=== PATIENT | male | born 1985 | race Caucasian/White ===

== ENCOUNTER 2019-11-14 08:27 | Day surgery (SDC) | payer OTHER ==
--- NOTE | 2019-11-14 08:01 | HP ---
DATE OF SURGERY: 11/14/2019 HISTORY OF PRESENT ILLNESS: The patient is a 34 year-old had flu-like symptoms coughing bad, had right inguinal bulge, increased ache. He has prior history of appendectomy in the past. No prior inguinal surgery. On exam he seemed to have more of an inguinal-type hernia rather than a femoral hernia. Either way I felt he would benefit from repair. Discussed options laparoscopic versus robotic. He prefers to proceed with laparoscopic. PAST MEDICAL HISTORY: Asthma. PAST SURGICAL HISTORY: Appendectomy. Lithotripsy for kidney stone. MEDICATIONS: None. ALLERGIES: NKDA. FAMILY HISTORY: Diabetes. SOCIAL HISTORY: No alcohol abuse. REVIEW OF SYSTEMS: Fourteen systems reviewed. No chest pain or palpitations other systems negative or noncontributory as above and per preadmission questionnaire. PHYSICAL EXAMINATION: GENERAL: No acute distress. HEENT: Sclerae nonicteric. NECK: No JVD. CHEST: Equal excursion, nonlabored breathing. CVS: Regular rate and rhythm. ABDOMEN: Soft. Right inguinal hernia, question of incarcerated inguinal hernia less likely femoral component possible differential. EXTREMITIES: No edema. NEURO: Alert, oriented, moving extremities symmetrically. No gross motor deficits noted. PSYCH: Appropriate mood and affect. IMPRESSION: Question of incarcerated right inguinal hernia less likely possible femoral component. I feel the patient will benefit from repair. Proceed with laparoscopic repair right inguinal hernia with mesh, possible open. Risks and benefits explained in detail to the patient but not limited to bleeding or infection, risk of trocar injury or hernia, risk of bowel, bladder, blood vessel injury, risk of bladder, ureter or vascular issues or injury, risk of vas or gonadal vessel issues or injury, risk of hernia recurrence, risk of mesh infection possibly requiring removal, risk of adhesion, risk of scar formation or obstruction, overall risk of recurrence, general risk of aches, pains, burning, numbness lower abdomen, groin, thigh or scrotal area, risk of sensory or motor nerve irritation, scar formation or injury, possible chronic aches and pains up to 10 to 12%, possibly interfering with sexual function from standpoint. He understands all of the above but not limited to as well as ache or twinge down the road. He understands all of the above as well as possible need to convert to an open procedure. He understands the risks. Small risk of urinary retention or bladder irritation possibly requiring temporary catheter, rare risk of requiring removal of mesh. General risk of anesthesia, deep venous thrombosis, pulmonary embolism, pneumonia but not limited to. He understands all of the above and will proceed with laparoscopic repair incarcerated right inguinal hernia with mesh as an outpatient.
[~2019-11-14 08:27] MED LIST: CEFAZOLIN 2 GM-D5W BAG** 2 GM/50 ML ML IV ONE; Lactated Ringers 1,000 ML IV ONE; Lactated Ringers 1,000 ML IV SCH; Sensorcaine 0.25% 10 ML ONE
[2019-11-14] MEDS ORDERED: DIPRIVAN 200 MG/20 ML IV ONE (09:53)
[2019-11-14] MEDS ORDERED: SUBLIMAZE 100 MCG/2 ML ONE ×2 (09:53→12:04)
[2019-11-14] MEDS ORDERED: Zemuron 100 MG/10 ML ONE ×3 (09:53→11:11)
[2019-11-14] MEDS ORDERED: Quelicin Fliptop 200 MG/10 ML ONE (09:53)
[2019-11-14] MEDS ORDERED: BRIDION 200MG/2ML IV ONE (10:06)
[2019-11-14] MEDS ORDERED: Zofran 4 MG/2 ML VIAL ONE (10:06)
[2019-11-14] MEDS ORDERED: Naropin 0.5% 30 ML VIAL ONE (10:06)
[2019-11-14] MEDS ORDERED: Decadron 4 MG INJ ONE (10:06)
[2019-11-14] MEDS ORDERED: TORAdol 30 mg Injection ONE (10:06)
[2019-11-14] MEDS ORDERED: DILAUDID 2 MG INJECTION ONE ×2 (11:30→12:04)
[2019-11-14] MEDS ORDERED: BENADRYL 50 MG/ML ONE (12:25)
[2019-11-14] MEDS ORDERED: Lactated Ringers 1,000 ML IV ONE (12:34)
[2019-11-14 13:25] VITALS: O2SAT 98
--- NOTE | 2019-11-14 13:41 | OP ---
SURGERY DATE/TIME: 11/14/2019 0958 PREOPERATIVE DIAGNOSIS: Increasing symptomatic incarcerated right inguinal hernia. POSTOPERATIVE DIAGNOSIS: Increasing symptomatic incarcerated right inguinal hernia. PROCEDURE: Laparoscopic repair of incarcerated right inguinal hernia with mesh. SURGEON: Dr. El Wharton. ANESTHESIA: General. ESTIMATED BLOOD LOSS: Minimal. INDICATIONS: As noted above. Risks and benefits explained in detail and not limited to and consent obtained. DESCRIPTION OF PROCEDURE AND FINDINGS: The patient is taken to the operating room. General anesthesia induced. Abdomen prepped and draped in usual sterile fashion. After official time out and no disagreement with planned procedure, a transverse incision made supraumbilical area. The site had been marked and confirmed with the patient in the preoperative holding area. After prepping and draping in usual sterile fashion, a transverse incision made supraumbilical area. Fascia grasped pulled upwards. Veress needle inserted and tested with saline. Pneumoperitoneum accomplished insufflating opening pressure 0-15. A 5 mm bladeless port and camera inserted without difficulty followed by right mid-abdomen and left mid-abdomen 5 mm port under direct vision with the camera. The patient had several omental adhesions from his previous appendectomy procedure. These were slowly and carefully taken down with sharp dissection with laparoscopic peyman sealing a little bit of oozing omentum with the LigaSure device as necessary. There was a portion of the colon stuck up there. It appeared to just have adhesions through. It did not appear to have any issues with lysis of adhesions. This was re-inspected at the very end of the case and appeared to be stable. There did not appear to be any issue of any bowel injury secondary to lysis of adhesions. The patient had incarcerated omentum stuck up in his right inguinal hernia. The left side did not appear to have any significant hernia currently laparoscopically. At this point the preperitoneal space was entered sharply with laparoscopic peyman. There was some scar tissue whether he had some sort of port from prior appendectomy this was densely adhesed here but the peritoneum was finally able to be freed. Dissection carried down to the moderately large indirect hernia sac. It took some time but slowly carefully freed leaving the fibrofatty tissue and cord structures off laterally. Again, this took some time to dissect this free but slowly and carefully accomplished in a blunt manner using LigaSure to seal oozing adhesion well away from the cord structures over the lateral nerves. Dissection then carried medially in the retrorectal space down to the pubis into the Case's ligament. The hernia sac and peritoneum carefully mobilized up off the core structures and iliac vessels. Again leaving the fibrofatty and neurovascular bundles out laterally. This large hernia sac had been reduced. Perineum was nice and lax. No evidence of any tension to create issues with recurrence. A tape measure was used. It was felt most appropriate was a large right 3D Max. A suture is placed at the crease to go over the iliac vessels. Good hemostasis noted. Good space had been created. At this point the mesh is carefully rolled, inserted, carefully positioned to overlap the direct femoral and indirect spaces. A couple of tacks placed on Case's ligament and pubis area. Given the size of this direct hernia component one tack was placed to reduce pressure down to 8 or 10. One tack was placed superior-lateral to avoid migration mesh staying superior to keep the mesh from folding or falling down in the large indirect space. One extra one in order to keep the mesh nice and flat more medially on the rectus area was accomplished. At this point it appeared to be covering the direct femoral and indirect spaces. It had excellent mobilization of peritoneum well cephalad to the mesh area to decrease the risk of it working its way behind the mesh. At this point the large hernia sac was carefully pulled upwards and packed with peritoneum cephalad to insure coverage of the mesh. At this point good hemostasis is noted. Again, the bowel where lysis of adhesion had been accomplished was inspected. No evidence of any issues secondary to lysis of adhesions on the bowel itself and appeared to be intact. There was no evidence of any enterotomy issues at this point. #1 Vicryl was used to close the 10/12 port site where the mesh had been placed through the mid abdomen under direct vision of the camera. At this point insuring that grasper holding lateral aspect of the mesh flat to avoid any buckling. Pneumoperitoneum decompressed as did overlap the peritoneum over the dissection. Again, the hernia sac had been tacked superiorly to avoid it working its way underneath. Pneumoperitoneum decompressed. Again the 10/12 port closed with #1 Vicryl. Wound irrigated out. Skin incision closed with 4-0 Vicryl, Steri-Strips and sterile dressing applied. 0.25% Marcaine local injected along the skin incision back towards the origin of inguinal nerve back towards the anterior iliac spine. The right inguinal pressure dressing was placed to reduce the risk of seroma formation given the moderately large hernia. Given this had been incarcerated hernia, the omentum had finally been able to be reduced from the incarcerated hernia repair and repaired as safely as carefully as possible laparoscopically. There were immediate complications. There was no family available to discuss the findings with out in the waiting area.
[2019-11-14 14:02] VITALS: BP 126/84; PULSE 92
[2019-11-14 15:36] LABS: Appearance CLEAR (CLEAR); Bilirubin NEGATIVE (NEGATIVE); Blood NEGATIVE Ery/ul (0-5); Glucose NEGATIVE (NEGATIVE); Ketones NEGATIVE (NEGATIVE); Leukocyte Esterase NEGATIVE (NEGATIVE); Mucus SLIGHT /HPF (NEGATIVE); Nitrite NEGATIVE (NEGATIVE); Protein,Urine Dip NEGATIVE (Negative); Specific Gravity 1.018 (1.005-1.025); Urobilinogen NEGATIVE mg/dL (0-1)
== END 2019-11-14 13:45 | disposition home or self-care (01) ==
LOC: SDC 08:27
PROVIDERS: ATTEND Surgery
DX: K40.30 Unilateral inguinal hernia, with obstruction, without gangrene, not specified as recurrent (principal)
CPT/HCPCS: 64486; 76937; 81001; 87086; J0330; J0690; J1100; J1170; J1200; J1885; J2405; J2704; J2795; J3010

== ENCOUNTER 2019-11-20 10:56 | Emergency (ER) | payer OTHER ==
[2019-11-20 11:52] LABS: Hematocrit 48.4 % (42-50); Hemoglobin 16.6 gm/dl (12.5-18.0); Mean Corpuscular Hemoglobin 28.5 pg (26-32); Mean Corpuscular Hgb Concent. 34.3 g/dl (32-36); Mean Platelet Volume 9.8 fl (7.5-11.0); Platelet Count 211 K/mm3 (150-450); Red Blood Count 5.83 M/mm3 (4.1-5.6); Red Cell Distribution Width 13.5 % (11.5-14.0); White Blood Count 13.9 K/mm3 (4.0-10.5)
[2019-11-20 12:00] LABS: Appearance SLIGHTLY CLOUDY (CLEAR); Bilirubin NEGATIVE (NEGATIVE); Blood NEGATIVE Ery/ul (0-5); Glucose NEGATIVE (NEGATIVE); Ketones NEGATIVE (NEGATIVE); Leukocyte Esterase NEGATIVE (NEGATIVE); Mucus SLIGHT /HPF (NEGATIVE); Nitrite NEGATIVE (NEGATIVE); Protein,Urine Dip NEGATIVE (Negative); RBC 0-2 /HPF (0-2); Specific Gravity 1.027 (1.005-1.025); Urobilinogen NEGATIVE mg/dL (0-1); WBC 0-2 /HPF (0-5)
[2019-11-20 12:02] LABS: ALBUMIN 4.2 g/dL (3.5-5.0); ALKALINE PHOSPHATASE 56 U/L (38-126); AMYLASE 54 U/L (30-110); ANION GAP 11.3 MEQ/L (5-15); BLOOD UREA NITROGEN 22 mg/dL (9-20); CHLORIDE 100 mmol/L (98-107); Calcium 9.3 mg/dL (8.4-10.2); Carbon Dioxide 32 mmol/L (22-30); Creatinine 1 0.85 mg/dL (0.66-1.25); Glucose 115 mg/dL (74-106); LIPASE 27 U/L (23-300); Potassium 4.9 mmol/L (3.5-5.1); SGOT/AST 25 U/L (17-59); SGPT/ALT 30 U/L (0-50); SODIUM 138 mmol/L (137-145); Total Protein 7.4 g/dL (6.3-8.2)
[2019-11-20] MEDS ORDERED: CLINDAMYCIN-D5W 900 MG/50 ML*** 900 MG/50 ML BAG IV STA (12:17)
[2019-11-20] MEDS ORDERED: SUBLIMAZE 100 MCG/2 ML IV ONE (12:18)
[2019-11-20] MEDS ORDERED: Zofran 4 MG/2 ML VIAL IV ONE (12:18)
--- NOTE | 2019-11-20 12:20 | ERPHSYRPT ---
- History of Present Illness Time Seen by Provider: 11/20/19 11:07 Source: patient Exam Limitations: no limitations Patient Subjective Stated Complaint: testicular pain Triage Nursing Assessment: pt to ED c/o R testicular pain onset 3 days ago after hernia surgery on Thursday. rates 8/10 pain that worsens with movement. noted swelling to R testicle. tender to palp. incision from surgery appears to be healing appropriately. no c/o pain with incision. states no urianry sx, no burning or hesitancy. pt has treated with abx and pain meds at home with relief. lung sounds clear and equal bilaterally, heart sounds clear, bowel sounsd active, A&Ox3. ambulatory with assistance of 1 d/t pain. Physician History: Six days ago pt had RLQ abdominal hernia surgery by dr kulkarni at [facility]. Pt states his right testicle became painful the same day after surgery and started swelling 3 days ago. Last BM was today & wnl. Pt denies fever, vomiting, chest pain, shortness of air. Allergies/Adverse Reactions: No Known Drug Allergies Allergy (Verified 11/20/19 11:15) Home Medications: Multivitamin [Multivitamins] 1 each PO DAILY 11/02/19 [History] Pseudoephedrine HCl [Sudafed] 30 mg PO DAILY PRN PRN 11/02/19 [History] Hx Tetanus, Diphtheria Vaccination/Date Given: Yes Hx Influenza Vaccination/Date Given: Yes Immunizations Up to Date: Yes Travel Risk - International Travel Have you traveled outside of the country in past 3 weeks: No Have you or anyone close to you been diagnosed with or: No Do your reside in a community with a known COVID-19 case?: Yes If Yes where:: [place] - Coronavirus Screening Has patient experienced Coronavirus symptoms: No - Past Medical History Pertinent Past Medical History: Yes Neurological History: No Pertinent History ENT History: No Pertinent History Cardiac History: No Pertinent History Respiratory History: Asthma Endocrine Medical History: No Pertinent History Musculoskeletal History: No Pertinent History GI Medical History: No Pertinent History History: Other Psycho-Social History: No Pertinent History Male Reproductive Disorders: No Pertinent History Other Medical History: kidney stones - Past Surgical History Past Surgical History: Yes Neuro Surgical History: No Pertinent History Cardiac: No Pertinent History Respiratory: No Pertinent History Gastrointestinal: Appendectomy Genitourinary: Other Musculoskeletal: No Pertinent History Male Surgical History: No Pertinent History Other Surgical History: lithotripsy, hernia mesh implant - Social History Smoking Status: Never smoker Exposure to second hand smoke: No Drug Use: none - Review of Systems Constitutional: No Fever Respiratory: No Dyspnea Cardiac: No Chest Pain Abdominal/Gastrointestinal: No Vomiting Genitourinary Symptoms: Testicle Pain (right), No Dysuria All Other Systems: Reviewed and Negative - Nursing Vital Signs Nursing Vital Signs: Initial Vital Signs Temperature 98.2 F 11/20/19 11:04 Pain Scale Pain Intensity 2 - Physical Exam General Appearance: alert Eye Exam: PERRL/EOMI Ears, Nose, Throat Exam: pharynx normal Neck Exam: normal inspection Respiratory Exam: lungs clear Cardiovascular Exam: normal heart sounds Gastrointestinal/Abdomen Exam: soft, normal bowel sounds, tenderness (mild RLQ abdominal tenderness; incisions healing well.) Male Genital Exam: testicular tenderness (R) (moderate right testicular tenderness, edema and scrotal ecchymosis.) Back Exam: normal inspection Extremity Exam: No pedal edema Neurologic Exam: alert, cooperative Skin Exam: ecchymosis (scrotum ) SpO2 Interpretation: normal SpO2: 95 O2 Delivery: Room Air - Course Nursing assessment & vital signs reviewed: Yes - CT Exams Abdomen/Pelvis CT Interpretation: Tele-radiologist Report (status post right inguinal hernia repair with a hematoma in the inguinal canal and thickening of the wall of the visualized scrotum with bilateral hydroceles not fully assessed. Nonobstructive renal calculi. fatty liver.) - Radiology Ultrasound Exam Scrotal Ultrasound: Other (tech report: epididymitis right testicle.) Ordered Tests: Active Orders 24 hr Category Date Time Status IV Insertion STAT Care 11/20/19 12:20 Active Isolation, Initiate & Maintain Q12H Care 11/20/19 11:14 Active ABDOMEN AND PELVIS W/0 CONTRAS [CT] Stat Exams 11/20/19 11:14 Taken TESTICLE [US] Routine Exams 11/20/19 12:52 Taken AMYLASE Stat Lab 11/20/19 11:45 Completed BLOOD CULTURE Stat Lab 11/20/19 13:00 Received CBC W DIFF Stat Lab 11/20/19 11:45 Completed CMP Stat Lab 11/20/19 11:45 Completed LIPASE Stat Lab 11/20/19 11:45 Completed Lactic Acid Stat Lab 11/20/19 12:16 Completed Manual Differential NC Stat Lab 11/20/19 11:45 Completed UA W/RFX UR CULTURE Stat Lab 11/20/19 11:39 Completed Medication Summary Generic Name Dose Route Start Last Admin Trade Name Tran PRN Reason Stop Dose Admin Sodium Chloride 1,000 mls @ 100 mls/hr 11/20/19 12:30 11/20/19 12:56 Sodium Chloride 0.9% 1000 Ml IV 12/20/19 12:29 100 mls/hr .Q10H LAURYN Administration Discontinued Medications Generic Name Dose Route Start Last Admin Trade Name Tran PRN Reason Stop Dose Admin Fentanyl Citrate 100 mcg 11/20/19 12:18 11/20/19 12:56 Sublimaze 100 Mcg/2 Ml IV 11/20/19 12:19 100 mcg STAT ONE Administration Fentanyl Citrate Confirm 11/20/19 12:51 Sublimaze 100 Mcg/2 Ml Administered 11/20/19 12:52 Dose 100 mcg .ROUTE .STK-MED ONE Clindamycin HCl/Dextrose 900 mg in 50 mls @ 100 mls/hr 11/20/19 12:17 12:56 Clindamycin-D5w 900 Mg/50 Ml IV 11/20/19 12:46 100 ml/hr STAT STA 100 mls/hr Administration Clindamycin HCl/Dextrose Confirm 11/20/19 12:51 Clindamycin-D5w 900 Mg/50 Ml Administered 11/20/19 12:52 Dose 900 mg in 50 mls @ ud IV .STK-MED ONE Ondansetron HCl 4 mg 11/20/19 12:18 11/20/19 12:56 Zofran 4 Mg/2 Ml Vial IV 11/20/19 12:19 4 mg STAT ONE Administration Ondansetron HCl Confirm 11/20/19 12:51 Zofran 4 Mg/2 Ml Vial Administered 11/20/19 12:52 Dose 4 mg .ROUTE .STK-MED ONE Lab/Rad Data: Laboratory Result Diagrams 11/20/19 11:45 11/20/19 11:45 Laboratory Results 11/20/19 11/20/19 11/20/19 Range/Units 12:16 11:45 11:45 WBC 13.9 H (4.0-10.5) K/mm3 RBC 5.83 H (4.1-5.6) M/mm3 Hgb 16.6 (12.5-18.0) gm/dl Hct 48.4 (42-50) % MCV 83.0 (78-100) fl MCH 28.5 (26-32) pg MCHC 34.3 (32-36) g/dl RDW 13.5 (11.5-14.0) % Plt Count 211 (150-450) K/mm3 MPV 9.8 (7.5-11.0) fl Sodium 138 (137-145) mmol/L Potassium 4.9 (3.5-5.1) mmol/L Chloride 100 (98-107) mmol/L Carbon Dioxide 32 H (22-30) mmol/L Anion Gap 11.3 (5-15) MEQ/L BUN 22 H (9-20) mg/dL Creatinine 0.85 (0.66-1.25) mg/dL Estimated GFR > 60.0 ML/MIN Glucose 115 H (74-106) mg/dL Lactic Acid 1.0 (0.4-2.0) Calcium 9.3 (8.4-10.2) mg/dL Total Bilirubin 0.90 (0.2-1.3) mg/dL AST 25 (17-59) U/L ALT 30 (0-50) U/L Alkaline Phosphatase 56 (38-126) U/L Serum Total Protein 7.4 (6.3-8.2) g/dL Albumin 4.2 (3.5-5.0) g/dL Amylase 54 (30-110) U/L Lipase 27 (23-300) U/L Urine Color (YELLOW) Urine Appearance (CLEAR) Urine pH (5-6) Ur Specific [place] (1.005-1.025) Urine Protein (Negative) Urine Ketones (NEGATIVE) Urine Blood (0-5) Yogi/ul Urine Nitrite (NEGATIVE) Urine Bilirubin (NEGATIVE) Urine Urobilinogen (0-1) mg/dL Ur Leukocyte Esterase (NEGATIVE) Urine WBC (Auto) (0-5) /HPF Urine RBC (Auto) (0-2) /HPF U Epithel Cells (Auto) (FEW) /HPF Urine Bacteria (Auto) (NEGATIVE) /HPF Unidentified Crystals (NEGATIVE) /HPF Urine Mucus (Auto) (NEGATIVE) /HPF Urine Culture Reflexed (NO) Urine Glucose (NEGATIVE) mg/dL 11/20/19 Range/Units 11:39 WBC (4.0-10.5) K/mm3 RBC (4.1-5.6) M/mm3 Hgb (12.5-18.0) gm/dl Hct (42-50) % MCV (78-100) fl MCH (26-32) pg MCHC (32-36) g/dl RDW (11.5-14.0) % Plt Count (150-450) K/mm3 MPV (7.5-11.0) fl Sodium (137-145) mmol/L Potassium (3.5-5.1) mmol/L Chloride (98-107) mmol/L Carbon Dioxide (22-30) mmol/L Anion Gap (5-15) MEQ/L BUN (9-20) mg/dL Creatinine (0.66-1.25) mg/dL Estimated GFR ML/MIN Glucose (74-106) mg/dL Lactic Acid (0.4-2.0) Calcium (8.4-10.2) mg/dL Total Bilirubin (0.2-1.3) mg/dL AST (17-59) U/L ALT (0-50) U/L Alkaline Phosphatase (38-126) U/L Serum Total Protein (6.3-8.2) g/dL Albumin (3.5-5.0) g/dL Amylase (30-110) U/L Lipase (23-300) U/L Urine Color YELLOW (YELLOW) Urine Appearance SLIGHTLY CLOUDY (CLEAR) Urine pH 6.0 (5-6) Ur Specific [place] 1.027 (1.005-1.025) Urine Protein NEGATIVE (Negative) Urine Ketones NEGATIVE (NEGATIVE) Urine Blood NEGATIVE (0-5) Yogi/ul Urine Nitrite NEGATIVE (NEGATIVE) Urine Bilirubin NEGATIVE (NEGATIVE) Urine Urobilinogen NEGATIVE (0-1) mg/dL Ur Leukocyte Esterase NEGATIVE (NEGATIVE) Urine WBC (Auto) 0-2 (0-5) /HPF Urine RBC (Auto) 0-2 (0-2) /HPF U Epithel Cells (Auto) NONE (FEW) /HPF Urine Bacteria (Auto) NONE (NEGATIVE) /HPF Unidentified Crystals 2-5 (NEGATIVE) /HPF Urine Mucus (Auto) SLIGHT (NEGATIVE) /HPF Urine Culture Reflexed NO (NO) Urine Glucose NEGATIVE (NEGATIVE) mg/dL - Progress Progress: unchanged Discussed with : Kye (spoke with dr kulkarni ~ [phone]: have pt call the office in the morning for an appointment.) Counseled pt/family regarding: lab results, rad results - Departure Departure Disposition: Home Clinical Impression: Epididymitis, right, S/P abd hernia repair day 6. Condition: Stable Critical Care Time: No Referrals: BRYANNA MOREL MD [Primary Care Provider] - Instructions: Epididymitis (DC) Additional Instructions: Call dr kulkarni's office tomorrow morning for an appointment. Prescriptions: Clindamycin HCl 300 mg PO Q6H #40 capsule
[2019-11-20] MEDS ORDERED: Sodium Chloride 0.9% 1000 ML 1,000 ML IV SCH (12:30)
[2019-11-20] MEDS ORDERED: CLINDAMYCIN-D5W 900 MG/50 ML*** 900 MG/50 ML BAG IV ONE (12:51)
[2019-11-20] MEDS ORDERED: Zofran 4 MG/2 ML VIAL ONE (12:51)
[2019-11-20] MEDS ORDERED: SUBLIMAZE 100 MCG/2 ML ONE (12:51)
[2019-11-20] MEDS ORDERED: Sodium Chloride 0.9% 1000 ML 1,000 ML ONE (12:51)
[2019-11-20 13:06] VITALS: PULSE 96
[2019-11-20 13:38] VITALS: BP 109/82; O2SAT 98
[2019-11-20 14:37] LABS: BAND 3 % (0.0-2.0); Eosinophil 2 % (0.00-3.0); Lymphocytes 20 % (24-44); Monocyte 8 % (0.0-12.0); Neutrophils 67 % (36.-66.); Total Cells Counted 100
[2019-11-20 14:38] LABS: Platelet Estimate NORMAL (NORMAL)
--- NOTE | 2019-11-20 20:31 | XRAY ---
Indication: Abdomen and right testicle pain. Status post right inguinal hernia repair one week. Multiple contiguous axial images obtained through the abdomen and pelvis without contrast as ordered. Comparison: CT renal stone study October 03, 2013. Lung bases demonstrates minimal bibasilar dependent atelectasis. No infiltrate or effusion. Heart is not enlarged. Stomach is distended with food/fluid. Noncontrasted stomach and bowel loops appear nonobstructed. Previous appendectomy. No free fluid/air. Stable nonobstructing calculi bilaterally. Again 21 cm fatty hepatomegaly and 13 cm splenomegaly. Right inguinal canal demonstrates new noncalcified heterogeneous density presumed related to recent surgery. Lack of contrast precludes further characterization. Remaining liver, gallbladder, pancreas, spleen, adrenal glands, kidneys, ureters bladder, and aorta appear unremarkable for noncontrast exam. Osseous structures intact. Impression: 1. New right inguinal canal heterogeneous density presumed related to recent surgery. 2. Again nonobstructing bilateral renal calculi, fatty hepatomegaly, and splenomegaly. 3. Remaining CT abdomen/pelvis without contrast exam is negative. Comment: Preliminary interpretation was made by [facility]. No critical discrepancy.
--- NOTE | 2019-11-20 20:38 | XRAY ---
Indication: Right pain and swelling. Status post right inguinal hernia repair one week. 2-dimensional testicular sonogram performed. Comparison: None Both testicles are homogeneous in echogenicity with normal color perfusion. Right testicle measures 4.9 x 2.7 x 3.4 cm and the left measures 4.2 x 2.5 x 3.4 cm. Prominent right epididymis measuring 7 x 9 x 21 mm with hyperemic color flow favoring epididymitis with also tiny 3 mm epididymal cyst. Small right-sided hydrocele presumed reactive. Also suspect right-sided varicocele accentuated with Valsalva maneuver in. Left epididymis sonographically unremarkable. Right inguinal canal demonstrates heterogeneous echogenicity extending into the right scrotum and slightly effacing the testicle presumed postoperative related to recent surgery. Impression: 1. Sonographic features favoring right-sided epididymitis with small reactive hydrocele and incidental tiny epididymal cyst. 2. Also right-sided varicocele. 3. Right inguinal canal heterogeneous echogenicity presumed postoperative related to recent surgery. 4. Negative for intratesticular mass or torsion. Comment: Preliminary report was given.
== END 2019-11-20 13:49 | disposition home or self-care (01) ==
LOC: ED 10:56
DX: N45.1 Epididymitis (principal); Z98.890 Other specified postprocedural states; J45.909 Unspecified asthma, uncomplicated
CPT/HCPCS: 36000; 36415; 74176; 76870; 80053; 81001; 82150; 83605; 83690; 85025; 87040; 96365; 96374; 96375; 99284; J2405; J3010